=== PATIENT | female | born 1955 | race Hispanic/Latino ===

== ENCOUNTER 2020-07-21 05:51 | Day surgery (SDC) | payer OTHER ==
[~2020-07-21] VITALS: Ht 160 cm; Wt 70.8 kg
[~2020-07-21 05:51] MED LIST: DIATR MEGLU/DIATRIZOATE SODIUM 30 ML BOTTLE ONE
[2020-07-21] MEDS ORDERED: SODIUM CHLORIDE 0.9% 1000ML 1,000 ML IV ONE (06:18)
[2020-07-21 07:01] VITALS: BP 118/65
[2020-07-21] MEDS ORDERED: LIDOCAINE HCL 400MG/20ML VIAL ONE (08:06)
[2020-07-21] MEDS ORDERED: PROPOFOL 10 MG/ML 20ML VIAL IV ONE ×2 (08:06)
[2020-07-21] MEDS ORDERED: PHENYLEPHRINE HCL 10 MG/ML 1ML VIAL IV ONE (08:19)
[2020-07-21] MEDS ORDERED: SODIUM CHLORIDE 0.9% 10 ML VIAL ONE (08:19)
[2020-07-21 08:40] VITALS: BP 93/43
[2020-07-21 08:45] VITALS: BP 100/40
== END 2020-07-21 09:06 | disposition home or self-care (01) ==
LOC: ENDO 05:51 → DAH 05:51 → ENDO 09:06
PROVIDERS: ATTEND Internal Medicine Gastroenterology
DX: K92.1 Melena (principal); Z20.822 Contact with and (suspected) exposure to COVID-19; K21.00 Gastro-esophageal reflux disease with esophagitis, without bleeding; K44.9 Diaphragmatic hernia without obstruction or gangrene; K29.70 Gastritis, unspecified, without bleeding; K31.89 Other diseases of stomach and duodenum; K63.5 Polyp of colon; K57.30 Diverticulosis of large intestine without perforation or abscess without bleeding; Z98.51 Tubal ligation status; Z72.89 Other problems related to lifestyle; Z80.0 Family history of malignant neoplasm of digestive organs; Z86.010 Personal history of colon polyps; Z79.899 Other long term (current) drug therapy
CPT/HCPCS: 43239; 45380; 87635; A4215 ×2; A4221; A4222; A4223; A4606; A4620; A4657 ×2; A4663; C9803; J2370; J2704; J3490; J7030; Q9963